=== PATIENT | male | born 1985 | race Caucasian/White ===

== ENCOUNTER 2018-09-06 02:51 | Emergency (ER) | payer MEDICAID ==
[2018-09-06 02:53] VITALS: BP 151/87
[2018-09-06] MEDS ORDERED: PROPARACAINE OPHTH 0.5%, 15ML EACHEYE ONE (03:30)
[2018-09-06] MEDS ORDERED: IBUPROFEN 200 MG TABLET PO ONE (04:00)
[2018-09-06] MEDS ORDERED: FLUORESCEIN/BENOXINATE 5 ML DROPS OP ONE (04:00)
[2018-09-06] MEDS ORDERED: IBUPROFEN 600 MG TABLET ONE (04:03)
== END 2018-09-06 04:08 | disposition home or self-care (01) ==
LOC: ED 04:02
DX: H10.021 Other mucopurulent conjunctivitis, right eye (principal); F17.210 Nicotine dependence, cigarettes, uncomplicated
CPT/HCPCS: 99283